=== PATIENT | female | born 1995 | race Caucasian/White ===

== ENCOUNTER 2017-11-16 13:57 | Outpatient (CLI) | END 2017-11-16 17:30 | disposition home or self-care (01) ==

== ENCOUNTER 2017-12-05 05:22 | Inpatient (IN) | END 2017-12-07 13:35 | disposition home or self-care (01) | DRG 778 ==

== ENCOUNTER 2017-12-23 20:12 | Outpatient (CLI) | END 2017-12-23 23:35 | disposition home or self-care (01) ==

== ENCOUNTER 2018-01-03 14:28 | Outpatient (CLI) | END 2018-01-03 16:50 | disposition home or self-care (01) ==

== ENCOUNTER 2018-01-04 14:48 | Outpatient (CLI) | END 2018-01-04 18:43 | disposition home or self-care (01) ==

== ENCOUNTER 2018-01-10 17:30 | Outpatient (CLI) | END 2018-01-10 20:25 | disposition home or self-care (01) ==

== ENCOUNTER 2018-01-19 10:20 | Inpatient (IN) | END 2018-01-22 13:35 | disposition home or self-care (01) | DRG 765 ==